=== PATIENT | male | born 1975 | race Two or more races ===

== ENCOUNTER 2019-11-11 22:00 | Emergency (ER) | payer SELFPAY ==
[~2019-11-11] VITALS: Ht 180.3 cm; Wt 90.7 kg
[2019-11-11 22:33] VITALS: BP 158/70
== END 2019-11-12 02:00 | disposition left against medical advice (07) ==
LOC: ER 22:00 → EDBD 22:00 → ER 11-12 02:00
DX: F41.9 Anxiety disorder, unspecified (principal); Z53.21 Procedure and treatment not carried out due to patient leaving prior to being seen by health care provider